=== PATIENT | female | born 1985 | race Caucasian/White ===

== ENCOUNTER 2017-12-07 19:01 | Emergency (ER) | payer BC ==
--- NOTE | 2017-12-07 19:25 | EDM.PDOC ---
ED HPI GENERAL MEDICAL PROBLEM - General Chief Complaint: Fever Stated Complaint: FEVER/COUGH/BODY ACHES Time Seen by Provider: 12/07/17 19:21 Source of Information: Reports: Patient History Limitations: Reports: No Limitations - History of Present Illness INITIAL COMMENTS - FREE TEXT/NARRATIVE: This is a 32-year-old female. Onset this afternoon with a dry cough and body aches and a low-grade fever up to 100.9. She also complains of a mild sore throat. She did have an episode of nausea and vomiting but she thinks was related to her paroxysms of coughing. She tells me that her 2 children have been diagnosed with the flu, influenza a, and she believe she has influenza a now as well. The 2 children are doing fine and they are on Tamiflu from their watch parts inspector. She denies any abdominal pain denies any chest pain. She's had no difficulty in urination and she staying well-hydrated. She does have a mild sore throat but she states her children did not have strep throat. Generalized Pain Score (Numeric/FACES): 6 - Related Data Allergies Allergy/AdvReac Type Severity Reaction Status Date / Time No Known Allergies Allergy Verified 12/07/17 19:09 Home Meds: Home Meds Oseltamivir [Tamiflu] 75 mg PO BID #10 cap 12/07/17 [Rx] Social & Family History - Tobacco Use Smoking Status *Q: Never Smoker - Recreational Drug Use Recreational Drug Use: No ED ROS ENT - Review of Systems Review Of Systems: See Below Constitutional: Reports: Fever, Chills, Malaise HEENT: Reports: Rhinitis, Other (Mild sore throat) Respiratory: Reports: Cough Cardiovascular: Reports: No Symptoms Endocrine: Reports: No Symptoms GI/Abdominal: Reports: Nausea, Vomiting, Other (Nausea and vomiting related to her coughing). Denies: Abdominal Pain, Diarrhea : Reports: No Symptoms Musculoskeletal: Reports: Other (Musculoskeletal aches) Skin: Reports: No Symptoms Neurological: Reports: No Symptoms Psychiatric: Reports: No Symptoms Hematologic/Lymphatic: Reports: No Symptoms ED EXAM, ENT - Physical Exam Exam: See Below Exam Limited By: No Limitations General Appearance: Alert, WD/WN, No Apparent Distress Eye Exam: Bilateral Eye: Normal Inspection Ears: Normal External Exam, Normal Canal, Normal TMs Nose: Clear Rhinorrhea, Nasal Discharge. No: Active Bleeding, Dried Blood Mouth/Throat: Normal Inspection, Tonsillar Erythema, Tonsillar Swelling. No: Tonsillar Exudates Head: Normocephalic Neck: Normal Inspection, Supple, Non-Tender Respiratory/Chest: No Respiratory Distress, Lungs Clear, Normal Breath Sounds Cardiovascular: Regular Rate, Rhythm, No Murmur GI/Abdominal: Soft Back: Full Range of Motion Extremities: Normal Inspection, Normal Range of Motion Neurological: Alert, Oriented Psychiatric: Normal Affect, Normal Mood Skin: Warm, Dry Course - Vital Signs Last Recorded V/S: Last Vital Signs Temp 100.3 F 12/07/17 19:07 Pulse 104 H 12/07/17 19:07 Resp 17 12/07/17 19:07 BP 130/84 12/07/17 19:07 Pulse Ox 97 12/07/17 19:07 - Re-Assessments/Exams Free Text/Narrative Re-Assessment/Exam: 12/07/17 20:30 Spoke to the patient regarding her influenza a being positive. She is going to be off work through Sunday, I'll place her on some Tamiflu though it is questionable whether it will help, I encouraged her to drink lots of fluids and natural or change juice and avoid sugar, she is to sleep and rest as much as possible and try not to spread this around anyone else. Departure - Departure Time of Disposition: 20:31 Disposition: Home, Self-Care 01 Condition: Good Clinical Impression: Influenza A - Discharge Information Prescriptions: Oseltamivir [Tamiflu] 75 mg PO BID #10 cap Referrals: Amaya Hopkins, [Primary Care Provider] - Forms: ED Department Discharge, ED Return to Work/School Form Additional Instructions: Start taking the Tamiflu as soon as you get it, sleep and rest as much as possible, try not to spread the fluid anyone, drink lots of water and natural orange juice with no sugar, return to the ER if your symptoms worsen
== END 2017-12-07 20:42 | disposition home or self-care (01) ==
LOC: JD.ED 19:01
DX: J10.1 Influenza due to other identified influenza virus with other respiratory manifestations (principal)
CPT/HCPCS: 87804; 99283

== ENCOUNTER 2018-11-15 01:49 | Inpatient (IN) | payer BC, MEDICAID ==
[2018-11-15] MEDS ORDERED: Sodium Chloride 0.9% 10 ML Syringe FLUSH PRN (02:36)
[2018-11-15] MEDS ORDERED: Metoclopramide 10 MG/2 ML SDV IVPUSH ONE (02:36)
[2018-11-15] MEDS ORDERED: Citric Acid/Sodium Citrate Solution 30 ML Cup PO ONE (02:36)
[2018-11-15] MEDS ORDERED: ceFAZolin 2 GM in Premix Bag 1 BAG IV ONE (02:36)
[2018-11-15] MEDS ORDERED: Nalbuphine 20 MG/ML 1 ML Syringe IVPUSH PRN (02:36)
[2018-11-15] MEDS ORDERED: Lactated Ringers 1,000 ML IV SCH (02:45)
[2018-11-15] MEDS ORDERED: Oxytocin/Lactated Ringers 10 UNIT/1,000 ML BAG IV SCH (02:45)
[2018-11-15] MEDS ORDERED: Bupivacaine 0.5% 30 ML SDV ONE (03:16)
[2018-11-15] MEDS ORDERED: Ondansetron 4 MG/2 ML SDV ONE (03:25)
[2018-11-15] MEDS ORDERED: Lactated Ringers 2,000 ML ONE (03:25)
[2018-11-15] MEDS ORDERED: Oxytocin 10 Units/1 ML SDV ONE ×2 (03:25)
[2018-11-15] MEDS ORDERED: ceFAZolin 1 GM Vial ONE (03:25)
[2018-11-15] MEDS ORDERED: Ketorolac 30 MG/ML SDV ONE (03:25)
[2018-11-15] MEDS ORDERED: Morphine PF 1 MG/ML Amp ONE (03:27)
[2018-11-15] MEDS ORDERED: Bupivacaine 0.75%/D5W 2 ML Amp ONE (03:29)
--- NOTE | 2018-11-15 03:31 | PCM.LDHP ---
L&D History of Present Illness - General Date of Service: 11/15/18 Admit Problem/Dx: Patient Status Order with Admit Dx/Problem 11/15/18 02:15 Patient Status [ADT] Routine 11/15/18 02:36 Patient Status [ADT] Routine Admission Diagnosis/Problem Admission Diagnosis/Problem 11/15/18 03:16 32 y/o W female at 38 5/7 weeks GA with an GRACIELA of 11/24/2018 admitted to L and D in active labor with moderate contractions q 2-5 minutes with a history of DC-section x 2 and desire for a repeat CS. The patient was seen in clinic on 11/14/2018 for preop evaluation. The procedure of repeat is d/w patient including risks, benefits, alternatives of care and follow-up. She appears understand and has signed a consent. She is to proceed. MAINFRAME APPLICATIONS DEVELOPER history 3 para 2001. Certain last menstrual period is unknown. Cycles are somewhat irregular every 28-35 days. Positive hCG was on 03/27/2018. Patient menarche at approximately age 12. GRACIELA of 11/24/2018 as determined by an early ultrasound that was done on 05/02/2018 at 11-1/7 weeks gestational age. This supported by second ultrasound done on 07/08/2018. Patient's past obstetric history includes the followin. Female infant born 01/20/2012 at 41 weeks gestational age18 hours of labor7 lbs. 11 oz.primary section done for failure to progress secondary to cephalopelvic disproportion. Child's name is Saba. 2. Male born 09/30/2013 at 39 weeks gestational age8 lbs. 10 oz.elective repeat sectionchild's name is Tad. course has been relatively unremarkable. She did have bacterial vaginosis which was treated. She declined genetic evaluation. She has had some depression with anxiety. Medications for this however. She is group B strep negative. She has had T dap on September 30, 2018. She is rubella immune. She did have some vertigo during the course of the also. This has resolved. She plans to breast-feed. Section was scheduled for 11/18/2018. course started 18 which time ultrasound showed to be 11 weeks and 1 day. Weight gain has been from 218 pounds to 238 pounds for 20 pound weight gain. No signs remained stable throughout the course. Fundal height growth has been appropriate to mildly ahead of schedule. labs have included blood which is a positive negative antibody screen. First hemoglobin was 12.3. Platelets were 204,000. She is rubella immune. Urine culture was essentially negative.B HIV assays were both negative. Chlamydia and gonorrhea both negative. Her second trimester labs showed hemoglobin 11.3 g/dL and platelets of 192,000. Group B strep screen was negative. RPR second trimester was reactive. Allergies none Medications: 1. Ferrous sulfate 325 mg per day Number to vitamins 1 daily Past medical history: 1. History of anxiety and history of depression. Past surgical history: 1. 2 2010 2011 2. Appendectomy 2007 Family histor mother is alive and well. Father is alive and well but with high cholesterol. 3/2 sisters alive and well. One sister had multiple ultrasounds and stillbirth baby. Maternal grandfather secondary to some cancer but she isn't sure. Grandmother is alive. Paternal grandfather secondary to some type of cancer but she is unsure. Paternal grandmother is secondary diabetic complications. Family history of cancer present. No , anesthesia, bleeding or blood clotting problems noted. A maternal aunt also with history of breast cancer at age 50. Social history: patient is single, lives in [place], has significant other named Jonh Street. She denies any significant amounts of alcohol, drugs or tobacco. Review of systems: In general patient has no complaints other than contractions. Baby is active.. Skin: Negative Lungs: No infectious symptoms or shortness of breath Cardiovascular: No chest pain or exercise intolerance Breasts: No lumps, changes in size, pain, dimpling, discharge or axillary or supraclavicular concerns. GI: Negative : Negative Musculoskeletal: Negative Neurological: Negative In general the patient is well-developed, well-nourished, pleasant feels stated age in no acute disstress. Skin is warm dry without lesions. HEENT, neck and back within normal limits. Lungs are clear with good breath sounds in all lung lopez. Cardiovascular exam shows regular and rhythm without murmurs. Abdomen is protuberant with fundal height of 40 cm, contractions are noted between it is soft, nontender without masses or organomegaly. Positive bowel sounds are noted. No inguinal lymphadenopathy or hernias are noted. Genital not performed at this time. Extremities and neurological exam are grossly within normal limits. Source of Information: Patient History Limitations: Reports: No Limitations - Related Data Allergies/Adverse Reactions: Allergies Allergy/AdvReac Type Severity Reaction Status Date / Time No Known Allergies Allergy Verified 12/07/17 19:09 Home Medications: Home Meds Oseltamivir [Tamiflu] 75 mg PO BID #10 cap 12/07/17 [Rx] Past Medical History - Past Health History Medical/Surgical History: Denies Medical/Surgical History H&P Review of Systems - Review of Systems: Review Of Systems: See Below L&D Exam - Exam Exam: See Below - Vital Signs Vital Signs: Last Vital Signs Temp 36.9 C 11/15/18 02:15 Pulse 83 11/15/18 02:15 Resp 16 11/15/18 02:15 BP 130/76 11/15/18 02:15 Pulse Ox 99 11/15/18 02:15 Weight: 108.409 kg - Patient Data Lab Results Last 24 hrs: Laboratory Results - last 24 hr 11/15/18 11/15/18 Range/Units 01:58 02:54 WBC 9.90 (3.98-10.04) K/mm3 RBC 3.81 L (3.98-5.22) M/mm3 Hgb 10.3 L (11.2-15.7) gm/L Hct 31.6 L (34.1-44.9) % MCV 82.9 (79.4-94.8) fl MCH 27.0 (25.6-32.2) pg MCHC 32.6 (32.2-35.5) g/dl RDW Std Deviation 41.8 (36.4-46.3) fL Plt Count 179 L (182-369) K/mm3 MPV 11.0 (9.4-12.3) fl Neut % (Auto) 64.1 (34.0-71.1) % Lymph % (Auto) 26.9 (19.3-51.7) % Gordon % (Auto) 7.4 (4.7-12.5) % Eos % (Auto) 1.2 (0.7-5.8) Baso % (Auto) 0.2 (0.1-1.2) % Neut # (Auto) 6.35 H (1.56-6.13) K/mm3 Lymph # (Auto) 2.66 (1.18-3.74) K/mm3 Gordon # (Auto) 0.73 H (0.24-0.36) K/mm3 Eos # (Auto) 0.12 (0.04-0.36) K/mm3 Baso # (Auto) 0.02 (0.01-0.08) K/mm3 Urine Color Yellow (Yellow) Urine Appearance Clear (Clear) Urine pH 5.5 (5.0-8.0) Ur Specific [place] > or = 1.030 (1.005-1.030) Urine Protein Negative (Negative) Urine Glucose (UA) Negative (Negative) Urine Ketones Negative (Negative) Urine Occult Blood Negative (Negative) Urine Nitrite Negative (Negative) Urine Bilirubin Negative (Negative) Urine Urobilinogen 0.2 (0.2-1.0) Ur Leukocyte Esterase Negative (Negative) Urine RBC 0-5 (0-5) /hpf Urine WBC 0-5 (0-5) /hpf Ur Epithelial Cells 5-10 H (0-5) /hpf Urine Bacteria Few (FEW) /hpf Urine Mucus Few (FEW) /hpf Result Diagrams: 11/15/18 02:54 Problem List Initiated/Reviewed/Updated: Yes Orders Last 24hrs: Active Orders 24 hr Category Date Time Status Patient Status [ADT] Routine ADT 11/15/18 02:36 Active Communication Order [RC] ROUTINE Care 11/15/18 02:36 Active Heart Tones [RC] PER UNIT ROUTINE Care 11/15/18 02:36 Active Non Stress Test [RC] PER UNIT ROUTINE Care 11/15/18 02:15 Active Non Stress Test [RC] PER UNIT ROUTINE Care 11/15/18 02:36 Active Peripheral IV Care [RC] . DIRECTED Care 11/15/18 02:37 Active Procedure Site Prep Instruct [RC] ASDIRECTED Care 11/15/18 02:36 Active Verify Patient Consent Obtain [RC] PER UNIT ROUTINE Care 11/15/18 02:36 Active Vital Signs [RC] PER UNIT ROUTINE Care 11/15/18 02:15 Active Vital Signs [RC] PFP Care 11/15/18 02:36 Active Nothing Per Oral Diet [DIET] Diet 11/15/18 Breakfast Active RAPID PLASMA REAGIN,RPR [CHEM] Routine Lab 11/15/18 02:36 Ordered TYPE AND SCREEN [BBK] Stat Lab 11/15/18 02:36 Ordered Lactated Ringers [Ringers, Lactated] 1,000 ml Med 11/15/18 02:45 Active IV ASDIRECTED Nalbuphine [Nubain] Med 11/15/18 02:36 Active 10 mg IVPUSH Q2H PRN Oxytocin/Lactated Ringers [Pitocin in LR 10 Units/1,000 Med 11/15/18 02:45 Active ML] 10 unit in 1,000 ml IV ASDIRECTED Sodium Chloride 0.9% [Saline Flush] Med 11/15/18 02:36 Active 10 ml FLUSH ASDIRECTED PRN Peripheral IV Insertion Adult [OM.PC] Routine Oth 11/15/18 02:36 Ordered Schedule Procedure [COMM] Per Unit Routine Oth 11/15/18 02:36 Ordered Resuscitation Status Routine Resus Stat 11/15/18 02:36 Ordered Medication Orders Lactated Ringer's (Ringers, Lactated) 1,000 mls @ 125 mls/hr IV ASDIRECTED YAA Oxytocin/Lactated Ringer's (Pitocin In Lr 10 Units/1,000 Ml) 10 unit in 1,000 mls @ 100 mls/hr IV ASDIRECTED YAA Nalbuphine HCl (Nubain) 10 mg IVPUSH Q2H PRN PRN Reason: pain Sodium Chloride (Saline Flush) 10 ml FLUSH ASDIRECTED PRN PRN Reason: Keep Vein Open Assessment/Plan Comment:: 1. 38-5/7 week intrauterine , history of previous section 2, now in active labor with desire for repeat section 2. Risk factors for surgery included history of previous 2, increased weight. 3. Rubella immune. 4. Patient plans to breast-feed Plan: 1. Repeat lower segment transverse uterine section through Pfannenstiel skin incision under spinal block. Procedure, risks, benefits, alternatives of care and follow-up discussed patient. She appears understand, has signed a consent and wishes to proceed 2. Preoperative labs to include CBC, type and screen 3. Routine preoperative prepped 4. DVT prophylaxis with SCDs 5. Infection prophylaxis with Ancef 2 g IV preop
--- NOTE | 2018-11-15 03:40 | PCM.PREANE ---
Preanesthetic Assessment - Procedure Proposed Procedure: repeat c section - Anesthesia/Transfusion/Family Hx Anesthesia History: Prior Anesthesia Without Reaction Family History of Anesthesia Reaction: No Transfusion History: No Prior Transfusion(s) - Review of Systems General: No Symptoms Pulmonary: No Symptoms Cardiovascular: No Symptoms Gastrointestinal: No Symptoms Neurological: No Symptoms Other: Reports: None - Physical Assessment NPO Status Date: 11/14/18 NPO Status Time: 23:55 O2 Sat by Pulse Oximetry: 99 Respiratory Rate: 16 Vital Signs: Last Vital Signs Temp 98.4 F 11/15/18 02:15 Pulse 83 11/15/18 02:15 Resp 16 11/15/18 02:15 BP 130/76 11/15/18 02:15 Pulse Ox 99 11/15/18 02:15 Height: 5 ft 2 in Weight: 108.409 kg ASA Class: 2E Mental Status: Alert & Oriented x3 Airway Class: Mallampati = 1 Dentition: Reports: Normal Dentition Thyro-Mental Finger Breadths: 3 Mouth Opening Finger Breadths: 3 ROM/Head Extension: Full Lungs: Clear to Auscultation, Normal Respiratory Effort Cardiovascular: Regular Rate, Regular Rhythm - Lab Values: Laboratory Last Values WBC 9.90 K/mm3 (3.98-10.04) 11/15/18 02:54 RBC 3.81 M/mm3 (3.98-5.22) L 11/15/18 02:54 Hgb 10.3 gm/L (11.2-15.7) L 11/15/18 02:54 Hct 31.6 % (34.1-44.9) L 11/15/18 02:54 MCV 82.9 fl (79.4-94.8) 11/15/18 02:54 MCH 27.0 pg (25.6-32.2) 11/15/18 02:54 MCHC 32.6 g/dl (32.2-35.5) 11/15/18 02:54 RDW Std Deviation 41.8 fL (36.4-46.3) 11/15/18 02:54 Plt Count 179 K/mm3 (182-369) L 11/15/18 02:54 MPV 11.0 fl (9.4-12.3) 11/15/18 02:54 Neut % (Auto) 64.1 % (34.0-71.1) 11/15/18 02:54 Lymph % (Auto) 26.9 % (19.3-51.7) 11/15/18 02:54 [place] % (Auto) 7.4 % (4.7-12.5) 11/15/18 02:54 Eos % (Auto) 1.2 (0.7-5.8) 11/15/18 02:54 Baso % (Auto) 0.2 % (0.1-1.2) 11/15/18 02:54 Neut # (Auto) 6.35 K/mm3 (1.56-6.13) H 11/15/18 02:54 Lymph # (Auto) 2.66 K/mm3 (1.18-3.74) 11/15/18 02:54 [place] # (Auto) 0.73 K/mm3 (0.24-0.36) H 11/15/18 02:54 Eos # (Auto) 0.12 K/mm3 (0.04-0.36) 11/15/18 02:54 Baso # (Auto) 0.02 K/mm3 (0.01-0.08) 11/15/18 02:54 Urine Color Yellow (Yellow) 11/15/18 01:58 Urine Appearance Clear (Clear) 11/15/18 01:58 Urine pH 5.5 (5.0-8.0) 11/15/18 01:58 Ur Specific [place] > or = 1.030 (1.005-1.030) 11/15/18 01:58 Urine Protein Negative (Negative) 11/15/18 01:58 Urine Glucose (UA) Negative (Negative) 11/15/18 01:58 Urine Ketones Negative (Negative) 11/15/18 01:58 Urine Occult Blood Negative (Negative) 11/15/18 01:58 Urine Nitrite Negative (Negative) 11/15/18 01:58 Urine Bilirubin Negative (Negative) 11/15/18 01:58 Urine Urobilinogen 0.2 (0.2-1.0) 11/15/18 01:58 Ur Leukocyte Esterase Negative (Negative) 11/15/18 01:58 Urine RBC 0-5 /hpf (0-5) 11/15/18 01:58 Urine WBC 0-5 /hpf (0-5) 11/15/18 01:58 Ur Epithelial Cells 5-10 /hpf (0-5) H 11/15/18 01:58 Urine Bacteria Few /hpf (FEW) 11/15/18 01:58 Urine Mucus Few /hpf (FEW) 11/15/18 01:58 - Allergies Allergies/Adverse Reactions: Allergies Allergy/AdvReac Type Severity Reaction Status Date / Time No Known Allergies Allergy Verified 12/07/17 19:09 - Blood Blood Available: No - Acknowledgements Anesthesia Type Planned: Spinal Pt an Appropriate Candidate for the Planned Anesthesia: Yes Alternatives and Risks of Anesthesia Discussed w Pt/Guardian: Yes Pt/Guardian Understands and Agrees with Anesthesia Plan: Yes PreAnesthesia Questionnaire - Past Health History Medical/Surgical History: Denies Medical/Surgical History HEENT History: Reports: Other (See Below) (baltazar) Cardiovascular History: Reports: None Respiratory History: Reports: None Gastrointestinal History: Reports: GERD (with preg) - Past Surgical History GI Surgical History: Reports: Appendectomy Female Surgical History: Reports: Section - History Comment History Comment: vits - SUBSTANCE USE Smoking Status *Q: Former Smoker (years ago) Tobacco Use Within Last Twelve Months: No Second Hand Smoke Exposure: No Days Per Week of Alcohol Use: 0 Recreational Drug Use History: No - HOME MEDS Home Medications: Home Meds Oseltamivir [Tamiflu] 75 mg PO BID #10 cap 12/07/17 [Rx] - CURRENT (IN HOUSE) MEDS Current Meds: Current Medications Lactated Ringer's (Ringers, Lactated) 1,000 mls @ 125 mls/hr IV ASDIRECTED YAA Oxytocin/Lactated Ringer's (Pitocin In Lr 10 Units/1,000 Ml) 10 unit in 1,000 mls @ 100 mls/hr IV ASDIRECTED YAA Nalbuphine HCl (Nubain) 10 mg IVPUSH Q2H PRN PRN Reason: pain Sodium Chloride (Saline Flush) 10 ml FLUSH ASDIRECTED PRN PRN Reason: Keep Vein Open Discontinued Medications Bupivacaine HCl (Marcaine 0.5%) Confirm Administered Dose 30 ml .ROUTE .STK-MED ONE Stop: 11/15/18 03:17 Bupivacaine HCl/Dextrose (Marcaine 0.75% Spinal) Confirm Administered Dose 2 ml .ROUTE .STK-MED ONE Stop: 11/15/18 03:30 Cefazolin Sodium (Ancef) Confirm Administered Dose 2 gm .ROUTE .STK-MED ONE Stop: 11/15/18 03:26 Citric Acid/Sodium Citrate (Bicitra Solution) 30 ml PO ONETIME ONE Stop: 11/15/18 02:37 Last Admin: 11/15/18 03:04 Dose: 30 ml Cefazolin Sodium/Dextrose 2 gm (/ Premix) 50 mls @ 100 mls/hr IV ONETIME ONE Stop: 11/15/18 03:05 Lactated Ringer's (Ringers, Lactated) Confirm Administered Dose 2,000 mls @ as directed .ROUTE .STK-MED ONE Stop: 11/15/18 03:26 Ketorolac Tromethamine (Toradol) Confirm Administered Dose 30 mg .ROUTE .STK- MED ONE Stop: 11/15/18 03:26 Metoclopramide HCl (Reglan) 10 mg IVPUSH ONETIME ONE Stop: 11/15/18 02:37 Last Admin: 11/15/18 03:04 Dose: 10 mg Morphine Sulfate (Duramorph Pf) Confirm Administered Dose 1 mg .ROUTE .STK-MED ONE Stop: 11/15/18 03:28 Ondansetron HCl (Zofran) Confirm Administered Dose 4 mg .ROUTE .STK-MED ONE Stop: 11/15/18 03:26 Oxytocin (Pitocin) Confirm Administered Dose 10 unit .ROUTE .STK-MED ONE Stop: 11/15/18 03:26 Oxytocin (Pitocin) Confirm Administered Dose 10 unit .ROUTE .STK-MED ONE Stop: 11/15/18 03:26
[2018-11-15] MEDS ORDERED: ePHEDrine/Normal Saline 25 MG/5 ML Syringe ONE (03:56)
[2018-11-15] MEDS ORDERED: fentaNYL 100 MCG/2 ML SDV IVPUSH PRN (03:58)
[2018-11-15] MEDS ORDERED: diphenhydrAMINE 50 MG/ML SDV IVPUSH PRN ×2 (03:58→07:21)
[2018-11-15] MEDS ORDERED: Ondansetron 4 MG/2 ML SDV IVPUSH PRN (03:58)
[2018-11-15] MEDS ORDERED: Meperidine 50 MG/ML Vial IVPUSH PRN (03:58)
[2018-11-15] MEDS ORDERED: Lactated Ringers 1,000 ML ONE (04:06)
--- NOTE | 2018-11-15 04:49 | PCM.POSTAN ---
POST ANESTHESIA ASSESSMENT - MENTAL STATUS Mental Status: Alert, Oriented - VITAL SIGNS Pulse Rate: 74 SaO2: 99 Resp Rate: 14 Blood Pressure: 105/58 Temperature: 98.4 F - RESPIRATORY Respiratory Status: Respiratory Rate WNL, Airway Patent, O2 Saturation Stable, Supplemental Oxygen - CARDIOVASCULAR CV Status: Pulse Rate WNL, Blood Pressure Stable - GASTROINTESTINAL GI Status: No Symptoms - PAIN Pain Score: 0 - POST OP HYDRATION Hydration Status: Adequate & Stable
--- NOTE | 2018-11-15 04:50 | PCM.OPNOTE ---
- General Post-Op/Procedure Note Date of Surgery/Procedure: 11/15/18 Operative Procedure(s): Repeat lower uterine segment transverse section through Pfannenstiel skin incision Findings: Moderate scarring noted in the anterior abdominal wall. The uterine wall was approximated 4 mm thick. Minimal scarring internally. Baby in vertex presentation. Amniotic fluid clear. Three-vessel umbilical cord. Baby's weight was 7 lbs. 7 oz., Apgars were 8 and 9 and it was a male born at 0410 hours on 11/15/2018. Pre Op Diagnosis: 38-5/7 week intrauterine , active labor, history of previous section 2 with desire for repeat section. Post-Op Diagnosis: Same with delivery of viable, 7 lbs. 7 oz. male with Apgars of 8 and 9 at 0410 hrs. on 11/15/2018. Anesthesia Technique: Spinal Other Anesthesia Type: Marcaine 0.5%20 mL local Primary Surgeon: Dg Hernandez Secondary Surgeon: Lorraine Summers Anesthesia Provider: Elisabet Valdez Fluid Replacement, Intraop: 2,600 Output, Urine Amount: 130 EBL in mLs: 600 Drain/Tube Comments:: Indwelling bladder catheter Complications: None Condition: Good Free Text/Narrative:: Surgery duration: 32 minutes Procedure: The patient is appropriately consented. Patient was transferred to the room and placed in a sitting position. Spinal anesthesia was administered. After confirmation of adequate anesthesia patient was placed in a supine position with a wedge under her right side to facilitate left lateral positioning. The patient was prepped and draped in usual fashion after Jacinto catheter was already placed . The anesthetic was checked and found to be adequate. 20 mL of Marcaine 0.5% was injected locally in the Pfannenstiel incision site. The Pfannenstiel skin incision was then made and carried down through skin, subcutaneous and fascial layers. The fascia was then undermined superiorly and inferiorly to allow for adequate operating room. The recti muscles midline and preperitoneal fat was bluntly dissected. Peritoneal cavity was entered longitudinally. The vesicouterine peritoneum was then incised transversely and bladder flap was developed. Myometrium was incised transversely to the level of the amniotic sac. This incision was extended bilaterally in a blunt fashion. The amniotic sac was then ruptured resulting in clear amniotic fluid. A hand is placed in the low uterine segment and the baby's head was brought forth through the incision. The baby was completely delivered using fundal pressure in a routine fashion. The nose and mouth were bulb suctioned. Baby's cord was clamped x2 cut and baby was handed off to the attending principal librarian. Placenta was expressed after cord blood was obtained. Uterus was then exteriorized to allow for easier closure. The cervix was assessed and found to be dilated adequately to allow egress of blood. The uterus was closed in 2 layers. The first layer a running locked suture of 0 Monocryl, the second layer a running locked vertical mattress suture of 0 Monocryl. [id number] suture was placed at mid incision to control 1 bleeder. Hemostasis confirmed at this time. Sponge instrument needle counts are correct. The uterus was returned to the abdominal cavity and lateral gutters were cleared of blood. Once again sponge needle counts are correct. The anterior abdominal wall was closed with a #1 PDS suture from angle to angle. The subcutaneous area was found to be free of any bleeders. 3 interrupted sutures of 3-0 Monocryl were used to reapproximate the subcutaneous layer.Skin was closed with a running subcuticular stitch of 3-0 Monocryl in a vertical mattress suture fashion using a Omer needle. Prineo mesh/glue was then applied to further approximate the incision. It should be noted that patient received 2 g of Ancef preoperatively for infection prophylaxis and had Pitocin infused after delivery of the placenta to facilitate uterine contraction. She also had sequential compression stockings in place for DVT prophylaxis. Patient was discharged from the operating room in satisfactory condition.
[2018-11-15] MEDS ORDERED: Ondansetron 4 MG/2 ML SDV IV PRN (07:21)
[2018-11-15] MEDS ORDERED: Dextrose 5%-Lactated Ringers 1,000 ML IV SCH (07:21)
[2018-11-15] MEDS ORDERED: Lanolin 100% Cream 7 GM Tube TOP PRN (07:21)
[2018-11-15] MEDS ORDERED: ePHEDrine 50 MG/ML SDV IVPUSH PRN (07:21)
[2018-11-15] MEDS ORDERED: Naloxone 0.4 MG/ML SDV IVPUSH PRN (07:21)
[2018-11-15] MEDS: Simethicone 80 MG Tab.Chew PO SCH ×4 (08:25→23:27)
[2018-11-15] MEDS: Ibuprofen 800 MG Tab PO SCH ×2 (10:15→18:41)
[2018-11-15] MEDS: Prenatal Multivitamin with Calcium/Folic Acid/Iron Tab PO SCH (18:55)
[2018-11-16] MEDS: Ibuprofen 800 MG Tab PO SCH ×3 (02:01→18:23)
--- NOTE | 2018-11-16 08:57 | PCM.SN ---
- Free Text/Narrative Note: note: Patient is doing well in the period. Minimal lochia, voiding well, ambulated without problems. Nursing without concerns. Patient is afebrile, vital signs are stable Lungs are clear with good breath sounds in all lung lopez. Cardiovascular exam shows regular and rhythm without murmurs. Abdomen is flat, soft, uterus is below the umbilicus and is firm and nontender. She appears intact. Prineo mesh is in place and intact. There is no evidence of hematoma, seroma or infection. Legs are nontender. Assessment: /postoperative day one recovery going well. Plan: Routine /postoperative care. Patient be discharged home within the next 24-48 hours.
[2018-11-16] MEDS: Simethicone 80 MG Tab.Chew PO SCH ×4 (10:08→23:41)
[2018-11-16] MEDS: Prenatal Multivitamin with Calcium/Folic Acid/Iron Tab PO SCH (10:08)
[2018-11-16] MEDS: Docusate Sodium 100 MG Cap PO PRN ×2 (10:08→23:41)
[2018-11-16] MEDS: Acetaminophen/oxyCODONE 325-5 MG Tab PO PRN ×2 (11:56→23:41)
[2018-11-17] MEDS: Ibuprofen 800 MG Tab PO SCH ×2 (03:20→10:57)
--- NOTE | 2018-11-17 06:29 | PCM.DCSUM1 ---
Discharge Summary - Hospital Course Free Text/Narrative:: Kena is a 32-year-old multigravida female who was admitted for elective repeat section on 11/15/2018. Patient had gone into labor and decision was made to do a at the time of that admission. She had been scheduled for 11/18/2018. On section on 11/15/2018. She delivered a viable, recio, male infant at 0410 hrs. on 11/15/2018. Apgars were 8 and 9, weight was 7 lbs. 7 oz. Findings at the time of surgery included moderate scarring within the anterior abdominal wall. Uterine brown approximate 4 mm thick. Minimal scarring was seen internally. Baby is in a vertex presentation. She was 38-5/7 weeks in active labor with a history of previous section 2 and a desire for repeat section. Post operatively patient has done well. She is made good bowel bladder laboratory recovery. She is nursing without problems. She has minimal lochia. Voiding without concerns. Hemoglobin on the first postoperative day was 9.0 and platelets were 150,000. Her vital signs stable. She is desiring discharge from the hospital. She is ready for discharge home. Diagnosis: Stroke: No - Discharge Data Discharge Date: 11/17/18 Discharge Disposition: Home, Self-Care 01 Condition: Good - Patient Summary/Data Operative Procedure(s) Performed: Repeat lower uterine segment transverse section through Pfannenstiel skin incision - Patient Instructions Diet: Regular Diet as Tolerated (Nursing diet was increased calories and calcium is recommended) Activity: As Tolerated (No lifting greater than 15 pounds or driving car 1 week. No intercourse or tampons until bleeding resolves.) Driving: Do Not Drive Showering/Bathing: May Shower Wound/Incision Care: Keep Operative Site/Wound Site Clean and Dry Notify Provider of: Fever, Increased Pain, Swelling and Redness, Drainage, Nausea and/or Vomiting - Discharge Plan Home Medications: Home Meds Acetaminophen/oxyCODONE [Percocet 325-5 MG] 2 tab PO Q4H PRN tablet 11/17/18 [ Rx] Docusate Sodium [Colace] 100 mg PO Q12H PRN cap 11/17/18 [Rx] Ibuprofen [Motrin] 800 mg PO Q8H tablet 11/17/18 [Rx] Referrals: Dg Hernandez MD [Primary Care Provider] - (Return to clinic[facility]. [facility] weeks.) - Discharge Summary/Plan Comment DC Time >30 min.: No Discharge Summary/Plan Comment: Discharge instructions: 1. Discharge home 2. Diet, activity and follow-up discussed with patient. Recommend nursing diet with increased calories and calcium. 3. Precautions given concern increased pain, bleeding, temperature, signs/ symptoms of DVT/PE. 4. Medications per home medication was printed, discussed with and given to the patient. 5. Return to clinic-Dr. Hernandez[facility] in 2 weeks. Diagnosis: 1. Term -history of previous 2-admitted in active labor- delivered a repeat section Condition: Good - Patient Data Vitals - Most Recent: Last Vital Signs Temp 36.9 C 11/17/18 03:00 Pulse 82 11/17/18 03:00 Resp 15 11/17/18 03:00 BP 120/72 11/17/18 03:00 Pulse Ox 99 11/17/18 03:00 Weight - Most Recent: 108.409 kg I&O - Last 24 hours: Intake & Output 11/16/18 11/16/18 11/17/18 14:59 22:59 06:59 Intake Total 240 Balance 240 Lab Results - Last 24 hrs: Laboratory Results - last 24 hr 11/16/18 Range/Units 06:20 WBC 6.25 (3.98-10.04) K/mm3 RBC 3.38 L (3.98-5.22) M/mm3 Hgb 9.0 L (11.2-15.7) gm/L Hct 28.4 L (34.1-44.9) % MCV 84.0 (79.4-94.8) fl MCH 26.6 (25.6-32.2) pg MCHC 31.7 L (32.2-35.5) g/dl RDW Std Deviation 42.5 (36.4-46.3) fL Plt Count 150 L (182-369) K/mm3 MPV 10.6 (9.4-12.3) fl Neut % (Auto) 60.7 (34.0-71.1) % Lymph % (Auto) 29.8 (19.3-51.7) % [place]upe % (Auto) 7.4 (4.7-12.5) % Eos % (Auto) 1.6 (0.7-5.8) Baso % (Auto) 0.2 (0.1-1.2) % Neut # (Auto) 3.80 (1.56-6.13) K/mm3 Lymph # (Auto) 1.86 (1.18-3.74) K/mm3 [place] # (Auto) 0.46 H (0.24-0.36) K/mm3 Eos # (Auto) 0.10 (0.04-0.36) K/mm3 Baso # (Auto) 0.01 (0.01-0.08) K/mm3 Med Orders - Current: Current Medications Diphenhydramine HCl (Benadryl) 25 mg IVPUSH Q6H PRN PRN Reason: Itching or Nausea Docusate Sodium (Colace) 100 mg PO Q12H PRN PRN Reason: Constipation Last Admin: 11/16/18 23:41 Dose: 100 mg Emollient Ointment (Lansinoh Hpa) 0 gm TOP ASDIRECTED PRN PRN Reason: Sore Nipples Ephedrine Sulfate (Ephedrine Sulfate) 5 mg IVPUSH SEECOMMENT PRN PRN Reason: Other Ibuprofen (Motrin) 800 mg PO Q8H [facility] Last Admin: 11/17/18 03:20 Dose: 800 mg Naloxone HCl (Narcan) 0.1 mg IVPUSH SEECOMMENT PRN PRN Reason: Respiratory Depression Ondansetron HCl (Zofran) 4 mg IV Q4H PRN PRN Reason: Nausea/Vomiting Oxycodone/Acetaminophen (Percocet 325-5 Mg) 2 tab PO Q4H PRN PRN Reason: Pain (moderate 4-6) Last Admin: 11/16/18 23:41 Dose: 1 tab Prenat Multivit/Yantis/Iron/Folic Ac ( Plus Iron) 1 each PO DAILY [facility] Last Admin: 11/16/18 10:08 Dose: 1 each Simethicone (Simethicone) 80 mg PO PCBED [facility] Last Admin: 11/16/18 23:41 Dose: 80 mg Discontinued Medications Bupivacaine HCl (Marcaine 0.5%) Confirm Administered Dose 30 ml .ROUTE .STK-MED ONE Stop: 11/15/18 03:17 Last Admin: 11/15/18 04:05 Dose: 20 ml Bupivacaine HCl/Dextrose (Marcaine 0.75% Spinal) Confirm Administered Dose 2 ml .ROUTE .STK-MED ONE Stop: 11/15/18 03:30 Cefazolin Sodium (Ancef) Confirm Administered Dose 2 gm .ROUTE .STK-MED ONE Stop: 11/15/18 03:26 Citric Acid/Sodium Citrate (Bicitra Solution) 30 ml PO ONETIME ONE Stop: 11/15/18 02:37 Last Admin: 11/15/18 03:04 Dose: 30 ml Diphenhydramine HCl (Benadryl) 25 mg IVPUSH Q6H PRN PRN Reason: pruritis Ephedrine Sulfate (Ephedrine In Ns) Confirm Administered Dose 25 mg .ROUTE .STK- MED ONE Stop: 11/15/18 03:57 Fentanyl (Sublimaze) 50 mcg IVPUSH Q5M PRN PRN Reason: Pain Cefazolin Sodium/Dextrose 2 gm (/ Premix) 50 mls @ 100 mls/hr IV ONETIME ONE Stop: 11/15/18 03:05 Last Admin: 11/15/18 18:55 Dose: Not Given Lactated Ringer's (Ringers, Lactated) 1,000 mls @ 125 mls/hr IV ASDIRECTED [facility] Oxytocin/Lactated Ringer's (Pitocin In Lr 10 Units/1,000 Ml) 10 unit in 1,000 mls @ 100 mls/hr IV ASDIRECTED [facility] Lactated Ringer's (Ringers, Lactated) Confirm Administered Dose 2,000 mls @ as directed .ROUTE .ST-MED ONE Stop: 11/15/18 03:26 Lactated Ringer's (Ringers, Lactated) Confirm Administered Dose 1,000 mls @ as directed .ROUTE .STK-MED ONE Stop: 11/15/18 04:07 Dextrose/Lactated Ringer's (Dextrose 5%-Lactated Ringers) 1,000 mls @ 125 mls/ hr IV ASDIRECTED [facility] Stop: 11/15/18 15:20 Last Admin: 11/15/18 08:25 Dose: 125 mls/hr Ketorolac Tromethamine (Toradol) Confirm Administered Dose 30 mg .ROUTE .STK- MED ONE Stop: 11/15/18 03:26 Meperidine HCl (Meperidine) 12.5 mg IVPUSH ONETIME PRN PRN Reason: shivering Metoclopramide HCl (Reglan) 10 mg IVPUSH ONETIME ONE Stop: 11/15/18 02:37 Last Admin: 11/15/18 03:04 Dose: 10 mg Morphine Sulfate (Duramorph Pf) Confirm Administered Dose 1 mg .ROUTE .STK-MED ONE Stop: 11/15/18 03:28 Nalbuphine HCl (Nubain) 10 mg IVPUSH Q2H PRN PRN Reason: pain Ondansetron HCl (Zofran) Confirm Administered Dose 4 mg .ROUTE .STK-MED ONE Stop: 11/15/18 03:26 Ondansetron HCl (Zofran) 4 mg IVPUSH ONETIME PRN PRN Reason: Nausea/Vomiting Oxytocin (Pitocin) Confirm Administered Dose 10 unit .ROUTE .STK-MED ONE Stop: 11/15/18 03:26 Oxytocin (Pitocin) Confirm Administered Dose 10 unit .ROUTE .STK-MED ONE Stop: 11/15/18 03:26 Sodium Chloride (Saline Flush) 10 ml FLUSH ASDIRECTED PRN PRN Reason: Keep Vein Open
[2018-11-17] MEDS: Acetaminophen/oxyCODONE 325-5 MG Tab PO PRN (09:20)
[2018-11-17] MEDS: Simethicone 80 MG Tab.Chew PO SCH (09:20)
[2018-11-17] MEDS: Prenatal Multivitamin with Calcium/Folic Acid/Iron Tab PO SCH (09:20)
== END 2018-11-17 10:58 | disposition home or self-care (01) | DRG 540 ==
LOC: JD.OB 01:49 → JD.OBCHECK 01:49 → UNDOADMIN 02:36 → JD.OB 02:36 → UNDOADMIN 13:01
PROVIDERS: ADMIT Obstetrics & Gynecology; ATTEND Obstetrics & Gynecology
PROC: 6A550ZT Pheresis of Cord Blood Stem Cells, Single (ICD-10-PCS; principal; 2018-11-15)
PROC: 10D00Z1 Extraction of Products of Conception, Low, Open Approach (ICD-10-PCS; principal; 2018-11-15)
DX: O34.211 Maternal care for low transverse scar from previous cesarean delivery (principal); O99.344 Other mental disorders complicating childbirth; F41.9 Anxiety disorder, unspecified; F32.9 Major depressive disorder, single episode, unspecified; Z3A.38 38 weeks gestation of pregnancy; Z37.0 Single live birth; N85.8 Other specified noninflammatory disorders of uterus; Z87.891 Personal history of nicotine dependence
CPT/HCPCS: 36415; 59025; 59409; 81001; 85025; 86592; 86850; 86900; 86901; 94762; A9270-GY; J0690; J1885; J2274; J2405; J2590; J2765; J3490; J7042; J7050; J7120